=== PATIENT | male | born 1970 | race Caucasian/White ===

== ENCOUNTER 2025-06-29 10:45 | Outpatient (OUT) | payer MEDICAID, SELFPAY | END 2025-06-29 10:46 | disposition home or self-care (01) | LOC: PST 10:45 | PROVIDERS: Visit Provider Surgery | DX: Z01.818 Encounter for other preprocedural examination (principal); R10.11 Right upper quadrant pain; R10.13 Epigastric pain; K62.5 Hemorrhage of anus and rectum ==